=== PATIENT | female | born 1940 | race Caucasian/White ===

== ENCOUNTER 2021-01-12 04:51 | Day surgery (SDC) | payer OTHER ==
[2021-01-10 16:57] VITALS: BMI 31.7
[2021-01-12 13:13] VITALS: BP 101/68; PULSE 76; TEMP 98
== END 2021-01-12 12:45 | disposition home or self-care (01) ==
LOC: JASU-ENDO 04:51
PROVIDERS: ATTEND Internal Medicine Gastroenterology
PROC: 0DBL8ZX Excision of Transverse Colon, Via Natural or Artificial Opening Endoscopic, Diagnostic (ICD-10-PCS; principal; 2021-01-12 10:57)
DX: Z12.11 Encounter for screening for malignant neoplasm of colon (principal); D12.3 Benign neoplasm of transverse colon; K57.30 Diverticulosis of large intestine without perforation or abscess without bleeding; K64.8 Other hemorrhoids; K59.00 Constipation, unspecified; K59.89 Other specified functional intestinal disorders
CPT/HCPCS: 88305-TC